=== PATIENT | female | born 1970 | race African-American/Black ===

== ENCOUNTER 2018-03-13 21:44 | Emergency (ER) | payer OTHER ==
[2018-03-13 22:16] VITALS: BP 148/94
== END 2018-03-14 00:05 | disposition left against medical advice (07) ==
LOC: ER 21:44
DX: Z53.21 Procedure and treatment not carried out due to patient leaving prior to being seen by health care provider (principal)

== ENCOUNTER 2018-03-15 13:00 | Emergency (ER) | payer BC, OTHER ==
[2018-03-15 13:29] VITALS: BP 154/95
--- NOTE | 2018-03-15 14:15 | ER Document Report ---
ED Skin Rash/Insect Bite/Abscs - General Chief Complaint: Rash Stated Complaint: POSSIBLE RASH Time Seen by Provider: 03/15/18 13:51 Mode of Arrival: Ambulatory Information source: Patient Notes: 47-year-old female presented ED for complaint of painful rash to her chest she states she went to her primary care doctor and they told her she had shingles but she was afraid that she had West Nile virus. She states she had a little bit of symptoms of a viral infection several days before and then developed a rash. She is alert and oriented respirations regular and in full sentences TRAVEL OUTSIDE OF THE [place] IN LAST 30 DAYS: No - HPI Patient complains to provider of: Skin rash/lesion - Right upper chest Onset: Other - 4 days Onset/Duration: Gradual Quality of pain: Achy Severity: Moderate Pain Level: 2 Skin Character: Vesicular Quality of rash: Itchy, Painful Identify cause: Yes - Patient was diagnosed with shingles at her primary care doctor the patient wanted a second opinion Exacerbated by: Denies Relieved by: Denies Similar symptoms previously: Yes Recently seen / treated by doctor: Yes - Related Data Allergies/Adverse Reactions: No Known Allergies Allergy (Verified 03/13/18 22:08) Past Medical History - Social History Smoking Status: Former Smoker Cigarette use (# per day): No Chew tobacco use (# tins/day): No Smoking Education Provided: No Frequency of alcohol use: Occasional Drug Abuse: None Occupation: Substance abuse counselor Lives with: Family Family History: Reviewed & Not Pertinent Patient has suicidal ideation: No Patient has homicidal ideation: No - Past Medical History Cardiac Medical History: Reports: Hx Hypercholesterolemia, Hx Hypertension Pulmonary Medical History: Reports: None EENT Medical History: Reports: None Neurological Medical History: Reports: None Endocrine Medical History: Reports: None Renal/ Medical History: Reports: Other - Fibroid uterus Malignancy Medical History: Reports: None GI Medical History: Reports: None Musculoskeletal Medical History: Reports None Skin Medical History: Reports None Psychiatric Medical History: Reports: Hx Anxiety Traumatic Medical History: Reports: None Infectious Medical History: Reports: None Past Surgical History: Reports: Hx Section - x1, Hx Hysterectomy - Immunizations Immunizations up to date: Yes Hx Diphtheria, Pertussis, Tetanus Vaccination: Yes Review of Systems - Review of Systems Constitutional: No symptoms reported EENT: No symptoms reported Cardiovascular: No symptoms reported Respiratory: No symptoms reported Gastrointestinal: No symptoms reported Genitourinary: No symptoms reported Female Genitourinary: No symptoms reported Musculoskeletal: No symptoms reported Skin: Lesions - Vesicular rash to the right upper chest does not cross center line Hematologic/Lymphatic: No symptoms reported Neurological/Psychological: No symptoms reported Physical Exam - Vital signs Vitals: Temp Pulse Resp BP Pulse Ox 99 F 88 20 154/95 H 100 03/15/18 13:28 03/15/18 13:28 03/15/18 13:28 03/15/18 13:28 03/15/18 13:28 Interpretation: Normal - General General appearance: Appears well, Alert - HEENT Head: Normocephalic, Atraumatic Eyes: Normal Pupils: PERRL - Respiratory Respiratory status: No respiratory distress Chest status: Nontender Breath sounds: Normal Chest palpation: Normal - Cardiovascular Rhythm: Regular Heart sounds: Normal auscultation Murmur: No - Abdominal Inspection: Normal Distension: No distension Bowel sounds: Normal Tenderness: Nontender Organomegaly: No organomegaly - Back Back: Normal, Nontender - Extremities General upper extremity: Normal inspection, Nontender, Normal color, Normal ROM , Normal temperature General lower extremity: Normal inspection, Nontender, Normal color, Normal ROM , Normal temperature, Normal weight bearing. No: Rafia's sign - Neurological Neuro grossly intact: Yes Cognition: Normal Orientation: AAOx4 [place] Coma Scale Eye Opening: Spontaneous [place] Coma Scale Verbal: Oriented [place] Coma Scale Motor: Obeys Commands [place] Coma Scale Total: 15 Speech: Normal Motor strength normal: LUE, RUE, LLE, RLE Sensory: Normal - Psychological Associated symptoms: Normal affect, Normal mood - Skin Skin Temperature: Warm Skin Moisture: Dry Skin Color: Normal Character of irregularity: Vesicular - Had a form vesicular rash right upper chest Irregularity with: Tenderness Course - Re-evaluation Re-evalutation: 03/15/18 17:00 Patient is already been started on Valtrex. Patient states she was having hard time swallowing the pills due to the size. Informed patient she should question but she needs to take the medication to decrease the pain and discomfort at the rash. Patient was given instructions to keep the rash covered when at home with her mother. Patient was discharged home to follow-up with her primary doctor. - Vital Signs Vital signs: Temp Pulse Resp BP Pulse Ox 99 F 88 20 154/95 H 100 03/15/18 13:28 03/15/18 13:28 03/15/18 13:28 03/15/18 13:28 03/15/18 13:28 Discharge - Discharge Clinical Impression: Shingles rash Qualifiers: Herpes zoster complications: without complications Qualified Code(s): B02.9 - Zoster without complications Disposition: HOME, SELF-CARE Additional Instructions: Shingles You have shingles. Shingles is caused by the chicken pox virus, The virus has been surviving dormant in a nerve cell since you had chicken pox years ago. The virus has spread down a nerve root to reach the skin. Typically, an band-like area of pain and skin sensitivity develops, then small blisters erupt in the area. Shingles lasts two or three weeks, but sometimes leaves persistent pain. You are contagious -- you can give children chicken pox. But you can't give anyone shingles. Antiviral medicines (such as acyclovir or famciclovir) can help, but the rash usually worsens for about a week. Pain medication is often given if the area hurts. Antihistamines such as Benadryl may be necessary for itching if it does not respond to soda baths and calamine lotion. Sometimes cortisone medicine or nerve-block shots are necessary if pain is severe. If the area remains severely painful as the sores heal, or if you suspect an infection developing in the sores, see your doctor. Please complete the Valtrex your primary care doctor gave you. As long as the rash is covered it is not contagious. Contact with the virus rash can spread the rash. If you touch the rash and touch someone else you can spread the virus. Good handwashing is very important with you living with your mother. If you work please be careful wash your hands well and do not touch the area while at work. Ibuprofen Ibuprofen is an excellent, safe drug for pain control. In addition, it has potent antiinflammatory effects which are beneficial, especially in the treatment of injuries, arthritis, or tendonitis. It's best to take ibuprofen with food. Persons with ulcer disease or allergy to aspirin should notify their physician of this before taking ibuprofen. Take the medication exactly as prescribed. Don't take additional doses unless instructed to do so by your doctor. If you develop wheezing, shortness of breath, hives, faintness, stomach pain, vomiting, or dark black stools, return for re-evaluation at once. FOLLOW-UP CARE: If you have been referred to a physician for follow-up care, call the physician s office for an appointment as you were instructed or within the next two days. If you experience worsening or a significant change in your symptoms, notify the physician immediately or return to the Emergency Department at any time for re-evaluation. Forms: Elevated Blood Pressure, Return to Work Referrals: KASSANDRA LOOB MD [Primary Care Provider] - Follow up as needed
== END 2018-03-15 14:20 | disposition home or self-care (01) ==
LOC: ER 13:00
DX: B02.9 Zoster without complications (principal); E78.00 Pure hypercholesterolemia, unspecified; I10 Essential (primary) hypertension; Z87.891 Personal history of nicotine dependence; Z90.710 Acquired absence of both cervix and uterus
CPT/HCPCS: 99282

== ENCOUNTER 2018-07-25 12:52 | Emergency (ER) | payer BC ==
[2018-07-25] MEDS ORDERED: ASPIRIN 81 MG TABLET, CHEWABLE PO ONE (13:33)
[2018-07-25] MEDS ORDERED: MORPHINE SULFATE 10 MG/ML INJ IV ONE (13:35)
--- NOTE | 2018-07-25 13:37 | ER Document Report ---
ED Medical Screen (RME) - General Chief Complaint: Chest Pain Stated Complaint: ABDOMINAL PAIN Time Seen by Provider: 07/25/18 13:26 Primary Care Provider: KASSANDRA LOBO MD [Primary Care Provider] - Follow up as needed Mode of Arrival: Ambulatory Information source: Patient Notes: 48-year-old female presents the emergency department with complaints of chest pain and abdominal pain. Patient states her chest pain started 4 days ago. Is been intermittent in nature. Patient states her last episode was this morning. She describes it as a sharp and stabbing sensation in the left chest. No radiation. No alleviating or exacerbating factors. She did not take any medication for the pain. She states that the pain resolved on its own. She is also having some lightheadedness. She states that she feels like she is going to pass out. Patient also notes 1 week history of lower abdominal pain. She describes it as a dull aching sensation. No radiation. No alleviating or exacerbating factors. She denies any nausea, vomiting, diarrhea, constipation, dysuria, hematuria, increased urgency, increased frequency. I have greeted and performed a rapid initial assessment of this patient. A comprehensive ED assessment and evaluation of the patient, analysis of test results and completion of the medical decision making process will be conducted by additional ED providers. PHYSICAL EXAMINATION: GENERAL: Well-appearing, well-nourished and in no acute distress. HEAD: Atraumatic, normocephalic. EYES: Pupils equal round extraocular movements intact, conjunctiva are normal. ENT: Nares patent NECK: Normal range of motion LUNGS: No respiratory distress Musculoskeletal: Normal range of motion NEUROLOGICAL: Normal speech, normal gait. TRAVEL OUTSIDE OF THE [place] IN LAST 30 DAYS: No - Related Data Allergies/Adverse Reactions: No Known Allergies Allergy (Verified 03/13/18 22:08) Past Medical History - Social History Chew tobacco use (# tins/day): No Frequency of alcohol use: Social Drug Abuse: None - Past Medical History Cardiac Medical History: Reports: Hx Hypercholesterolemia, Hx Hypertension Renal/ Medical History: Denies: Hx Peritoneal Dialysis Psychiatric Medical History: Reports: Hx Anxiety Past Surgical History: Reports: Hx Section - x1, Hx Hysterectomy - Immunizations Immunizations up to date: Yes Hx Diphtheria, Pertussis, Tetanus Vaccination: Yes Physical Exam - Vital signs Vitals: Temp Pulse Resp BP Pulse Ox 97.9 F 102 H 16 147/83 H 100 07/25/18 12:56 07/25/18 12:56 07/25/18 12:56 07/25/18 12:56 07/25/18 12:56 Course - Vital Signs Vital signs: Temp Pulse Resp BP Pulse Ox 97.9 F 102 H 16 147/83 H 100 07/25/18 12:56 07/25/18 12:56 07/25/18 12:56 07/25/18 12:56 07/25/18 12:56 Doctor's Discharge - Discharge Referrals: KASSANDRA LOBO MD [Primary Care Provider] - Follow up as needed
[2018-07-25 14:30] LABS: ABSOLUTE EOSINOPHILS # (AUTO) 0.1 10^3/uL (0.0-0.6); ABSOLUTE LYMPHOCYTES (AUTO) 2.2 10^3/uL (0.5-4.7); ABSOLUTE MONOCYTES (AUTO) 0.6 10^3/uL (0.1-1.4); ABSOLUTE NEUT (AUTO) 3.5 10^3/uL (1.7-8.2); BASOPHILS % (AUTO) 0.7 % (0-2); EOSINOPHILS % (AUTO) 1.2 % (0-6); HEMATOCRIT 42.5 % (36.0-47.0); HEMOGLOBIN 14.4 g/dL (12.0-15.5); MEAN CORPUSCULAR HEMOGLOBIN 29.5 pg (27.0-33.4); MEAN CORPUSCULAR HGB CONC 33.8 g/dL (32.0-36.0); MEAN CORPUSCULAR VOLUME 87 fl (80-97); PLATELET COUNT 312 10^3/uL (150-450); RED BLOOD COUNT 4.87 10^6/uL (3.72-5.28); RED CELL DISTRIBUTION WIDTH 13.9 % (11.5-14.0); SEGMENTED NEUTROPHILS % (AUTO) 54.1 % (42-78); TOTAL CELLS COUNTED % (AUTO) 100 %; WHITE BLOOD COUNT 6.4 10^3/uL (4.0-10.5)
[2018-07-25 14:42] LABS: ALANINE AMINOTRANSFERASE 23 U/L (9-52); ALBUMIN 4.9 g/dL (3.5-5.0); ALKALINE PHOSPHATASE 63 U/L (38-126); ANION GAP 12 (5-19); ASPARTATE AMINO TRANSFERASE 23 U/L (14-36); BILIRUBIN,DIRECT 0.2 mg/dL (0.0-0.4); BILIRUBIN,TOTAL 0.7 mg/dL (0.2-1.3); BLOOD UREA NITROGEN 12 mg/dL (7-20); CARBON DIOXIDE 29 mmol/L (22-30); CHLORIDE 99 mmol/L (98-107); GLUCOSE 120 mg/dL (75-110); LIPASE 110.3 U/L (23-300); POTASSIUM 3.8 mmol/L (3.6-5.0); SODIUM 139.7 mmol/L (137-145)
--- NOTE | 2018-07-25 14:51 | RADIOLOGY REPORT (SQ) ---
EXAM DESCRIPTION: CHEST SINGLE VIEW COMPLETED DATE/TIME: 07/25/2018 2:43 pm REASON FOR STUDY: chest pain COMPARISON: None. EXAM PARAMETERS: NUMBER OF VIEWS: One view. TECHNIQUE: Single frontal radiographic view of the chest acquired. RADIATION DOSE: NA LIMITATIONS: None. FINDINGS: LUNGS AND PLEURA: No opacities, masses or pneumothorax. No pleural effusion. MEDIASTINUM AND HILAR STRUCTURES: No masses. Contour normal. HEART AND VASCULAR STRUCTURES: Heart normal in size. Normal vasculature. BONES: No acute findings. HARDWARE: None in the chest. OTHER: No other significant finding. IMPRESSION: 1. NO ACUTE RADIOGRAPHIC FINDING IN THE CHEST. TECHNICAL DOCUMENTATION: JOB ID: [id number] [employer]- All Rights Reserved Reading location - IP/workstation name: [email or web address]
[2018-07-25 14:56] LABS: APPEARANCE,URINE CLEAR; BILIRUBIN,URINE NEGATIVE (NEGATIVE); GLUCOSE, URINE NEGATIVE (NEGATIVE); KETONES,URINE NEGATIVE (NEGATIVE); LEUKOCYTE ESTERASE,URINE NEGATIVE (NEGATIVE); NITRITE,URINE NEGATIVE (NEGATIVE); PROTEIN,URINE NEGATIVE (NEGATIVE); URINE SPECIFIC GRAVITY 1.003; UROBILINOGEN,URINE NEGATIVE mg/dL (<2.0)
--- NOTE | 2018-07-25 14:57 | ER Document Report ---
ED General - General Chief Complaint: Chest Pain Stated Complaint: ABDOMINAL PAIN Time Seen by Provider: 07/25/18 13:26 Primary Care Provider: KASSANDRA LOBO MD [ACTIVE STAFF] - Follow up as needed Mode of Arrival: Ambulatory TRAVEL OUTSIDE OF THE [place] IN LAST 30 DAYS: No - HPI Notes: Patient is a 48-year-old -[place] female with history of hypertension and hyperlipidemia that presents to the emergency department for chief complaint of chest and abdominal pain. Patient reports squeezing chest pain beginning yesterday that comes and goes. She states the pain lasts about half a second and it happened 3 times yesterday and twice today. She denies changes in chest pain with activity or when eating. She denies any aggravating or relieving factors to the chest pain. She is not currently having any chest pain. Patient states her primary care provider had ordered an outpatient stress test a few months ago but she has not scheduled t hat yet. She has no history of getting cardiac stress test in the past. The patient also reports abdominal pain beginning 1 week ago. She describes it as a intermittent crampy sensation that starts on her lower abdomen and radiates up to her upper abdomen. She is not currently having the abdominal pain. She denies associated diarrhea and vomiting. She denies any urinary complaints. Leg swelling patient is also complaining of jaw pain which she describes as "my head is full" beginning 3 days ago. Patient endorses some dizziness and difficulty concentrating. She states she has been around sick individuals at work and recently had a cold that lasted for 2 weeks, although she states she has been healthy for the past 2 weeks. She treated her cold with Zyrtec and Coricidin and has not been on any recent antibiotics. Patient denies shortness of breath, headache, nausea, vomiting, diarrhea, fever. Past Medical History: Hypertension, hyperlipidemia Past Surgical History: Reviewed in chart Social History: Social alcohol consumption 2-3 times per month, denies tobacco and drug use Family History: Reviewed and noncontributory for presenting illness Allergies: Reviewed, see documented allergy list. REVIEW OF SYSTEMS: CONSTITUTIONAL : No fever No chills No diaphoresis No recent illness EENT: No vision changes No congestion No sore throat CARDIOVASCULAR: chest pain No palpitations RESPIRATORY: No shortness of breath No cough No difficulty breathing GASTROINTESTINAL: abdominal pain No nausea No vomiting No diarrhea GENITOURINARY: No dysuria No hematuria No difficulty urinating MUSCULOSKELETAL: jaw pain No back pain No leg pain No arm pain SKIN: No rashes No lesions LYMPHATIC: No swollen, enlarged glands. NEUROLOGICAL: lightheadedness No headache No weakness No paresthesias PSYCHIATRIC: No anxiety No depression PHYSICAL EXAMINATION: Vital signs reviewed, nursing noted reviewed. GENERAL: Well-appearing, obese and in no acute distress. HEAD: Atraumatic, normocephalic. No tenderness to palpation of the TMJ or temporal artery. EYES: Eyes appear normal, extraocular movements intact, sclera anicteric, conjun ctiva are normal. ENT: nares patent, oropharynx clear without exudates. Moist mucous membranes. NECK: Normal range of motion, supple without lymphadenopathy LUNGS: Breath sounds clear to auscultation bilaterally and equal. No wheezes rales or rhonchi. HEART: Tachycardic rate and regular rhythm without murmurs ABDOMEN: No abdominal tenderness , normoactive bowel sounds. No rebound, guarding, or rigidity. No masses appreciated. EXTREMITIES: Nontender, good range of motion, no pitting or edema. NEUROLOGICAL: No focal neurological deficits. Moves all extremities spontaneously Motor and sensory grossly intact on exam. PSYCH: Normal mood, normal affect. SKIN: Warm, Dry, normal turgor, no rashes or lesions noted on exposed skin - Related Data Allergies/Adverse Reactions: No Known Allergies Allergy (Verified 03/13/18 22:08) Past Medical History - General Information source: Patient - Social History Smoking Status: Never Smoker Chew tobacco use (# tins/day): No Frequency of alcohol use: Social Drug Abuse: None Family History: Reviewed & Not Pertinent Patient has suicidal ideation: No Patient has homicidal ideation: No - Past Medical History Cardiac Medical History: Reports: Hx Hypercholesterolemia, Hx Hypertension Renal/ Medical History: Denies: Hx Peritoneal Dialysis Psychiatric Medical History: Reports: Hx Anxiety Past Surgical History: Reports: Hx Section - x1, Hx Hysterectomy - Immunizations Immunizations up to date: Yes Hx Diphtheria, Pertussis, Tetanus Vaccination: Yes Physical Exam - Vital signs Vitals: Temp Pulse Resp BP Pulse Ox 97.9 F 102 H 16 147/83 H 100 07/25/18 12:56 07/25/18 12:56 07/25/18 12:56 07/25/18 12:56 07/25/18 12:56 Course - Re-evaluation Re-evalutation: 07/25/18 15:08 Vitals reviewed. Nursing notes reviewed. Patient is complaining of a nonspecific sensation in her head that she describes as dizzy and lightheaded. She has no focal neurologic deficits or ataxia. She will be given meclizine for symptomatic management. Her EKG shows no acute STEMI. Patient not currently experiencing chest pain. Her heart score is 3. 07/25/18 16:01 Patient reevaluated and did get relief of her dizziness with the meclizine. CT brain showed no acute intracranial pathology. The remainder of her workup is unremarkable. She does not appear dehydrated and has a negative troponin. Patient has not had chest pain since being in the emergency room. Her intermittent pain lasting only a second is atypical for acute coronary syndrome. With a heart score of 3 she is at low risk for major adverse cardiac event in the next month. I did offer a delta troponin which patient has declined. She was encouraged to follow with her primary care doctor in the next few days for reevaluation and outpatient cardiac stress test which she has already had ordered and just needs to schedule. She will return to the emergency room for any new or worsening symptoms. She is in agreement with plan of care and stable at discharge. Laboratory 07/25/18 07/25/18 07/25/18 13:52 13:52 13:52 WBC 6.4 RBC 4.87 Hgb 14.4 Hct 42.5 MCV 87 MCH 29.5 MCHC 33.8 RDW 13.9 Plt Count 312 Seg Neutrophils % 54.1 Lymphocytes % 35.0 Monocytes % 9.0 Eosinophils % 1.2 Basophils % 0.7 Absolute Neutrophils 3.5 Absolute Lymphocytes 2.2 Absolute Monocytes 0.6 Absolute Eosinophils 0.1 Absolute Basophils 0.0 Sodium 139.7 Potassium 3.8 Chloride 99 Carbon Dioxide 29 Anion Gap 12 BUN 12 Creatinine 0.59 Est GFR ( Amer) > 60 Est GFR (Non-Af Amer) > 60 Glucose 120 H Calcium 10.0 Total Bilirubin 0.7 Direct Bilirubin 0.2 Neonat Total Bilirubin Not Reportable Neonat Direct Bilirubin Not Reportable Neonat Indirect Bili Not Reportable AST 23 ALT 23 Alkaline Phosphatase 63 Troponin I < 0.012 Total Protein 9.0 H Albumin 4.9 Lipase 110.3 Urine Color Urine Appearance Urine pH Ur Specific [place] Urine Protein Urine Glucose (UA) Urine Ketones Urine Blood Urine Nitrite Urine Bilirubin Urine Urobilinogen Ur Leukocyte Esterase Urine WBC (Auto) Urine RBC (Auto) Urine Bacteria (Auto) Squamous Epi Cells Auto Urine Mucus (Auto) Urine Ascorbic Acid 07/25/18 13:52 WBC RBC Hgb Hct MCV MCH MCHC RDW Plt Count Seg Neutrophils % Lymphocytes % Monocytes % Eosinophils % Basophils % Absolute Neutrophils Absolute Lymphocytes Absolute Monocytes Absolute Eosinophils Absolute Basophils Sodium Potassium Chloride Carbon Dioxide Anion Gap BUN Creatinine Est GFR ( Amer) Est GFR (Non-Af Amer) Glucose Calcium Total Bilirubin Direct Bilirubin Neonat Total Bilirubin Neonat Direct Bilirubin Neonat Indirect Bili AST ALT Alkaline Phosphatase Troponin I Total Protein Albumin Lipase Urine Color STRAW Urine Appearance CLEAR Urine pH 6.0 Ur Specific [place] 1.003 Urine Protein NEGATIVE Urine Glucose (UA) NEGATIVE Urine Ketones NEGATIVE Urine Blood NEGATIVE Urine Nitrite NEGATIVE Urine Bilirubin NEGATIVE Urine Urobilinogen NEGATIVE Ur Leukocyte Esterase NEGATIVE Urine WBC (Auto) 3 Urine RBC (Auto) 1 Urine Bacteria (Auto) 3+ Squamous Epi Cells Auto 2 Urine Mucus (Auto) RARE Urine Ascorbic Acid NEGATIVE Chest X-Ray 07/25/18 13:33 IMPRESSION: 1. NO ACUTE RADIOGRAPHIC FINDING IN THE CHEST. Head CT 07/25/18 15:02 IMPRESSION: NORMAL BRAIN CT WITHOUT CONTRAST. EVIDENCE OF ACUTE STROKE: NO. - Vital Signs Vital signs: Temp Pulse Resp BP Pulse Ox 97.9 F 102 H 16 147/83 H 97 07/25/18 12:56 07/25/18 12:56 07/25/18 12:56 07/25/18 12:56 07/25/18 14:30 - Laboratory Result Diagrams: 07/25/18 13:52 07/25/18 13:52 Laboratory results interpreted by me: 07/25/18 13:52 Glucose 120 H Total Protein 9.0 H - EKG Interpretation by Me Additional EKG results interpreted by me: 07/25/18 15:07 Interpreted by myself [id number]: Sinus tachycardia, rate 100, normal axis, no ectopy, no STEMI Discharge - Discharge Clinical Impression: Chest pain Qualifiers: Chest pain type: unspecified Qualified Code(s): R07.9 - Chest pain, unspecified Condition: Stable Disposition: HOME, SELF-CARE Instructions: Chest Pain of Unclear Cause ([facility]) Additional Instructions: Please return to the emergency department if you have any worsening, or concern of your symptoms. Please return to the emergency department if you develop chest pain, difficulty breathing, severe abdominal pain, or ongoing vomiting. Please follow-up with your primary care physician in 2-3 days and any other recommended physicians. If prescribed, take all medications as directed. If you have any questions or concerns do not hesitate to return the emergency department for evaluation. Follow-up with your doctor for cardiac stress test this week in the next few days. Prescriptions: Meclizine HCl [Motion Relief] 25 mg PO BID PRN #30 tablet PRN Reason: dizziness Referrals: KASSANDRA LOBO MD [ACTIVE STAFF] - Follow up in 3-5 days
[2018-07-25 15:00] LABS: COLOR,URINE STRAW
[2018-07-25] MEDS ORDERED: MECLIZINE HCL 25 MG TABLET PO ONE (15:02)
--- NOTE | 2018-07-25 15:28 | RADIOLOGY REPORT (SQ) ---
EXAM DESCRIPTION: CT HEAD WITHOUT COMPLETED DATE/TIME: 07/25/2018 3:17 pm REASON FOR STUDY: dizziness COMPARISON: None. TECHNIQUE: Axial images acquired through the brain without intravenous contrast. Images reviewed wi th bone, brain and subdural windows. Images stored on PACS. All CT scanners at this facility use dose modulation, iterative reconstruction, and/or weight based d osing when appropriate to reduce radiation dose to as low as reasonably achievable ([facility]). [facility]: Dose Right [facility]: CareDose [facility]: Dose Right [facility]: Teradose 4D [facility]: Freeppie RADIATION DOSE: CT Rad equipment meets quality standard of care and radiation dose reduction techniq ues were employed. CTDIvol: 53.2 mGy. DLP: 1044 mGy-cm. mGy. LIMITATIONS: None. FINDINGS: VENTRICLES: Normal size and contour. CEREBRUM: No masses. No hemorrhage. No midline shift. No evidence for acute infarction. Normal gra y/white matter differentiation. No areas of low density in the white matter. CEREBELLUM: No masses. No hemorrhage. No alteration of density. No evidence for acute infarction. EXTRAAXIAL SPACES: No fluid collections. No masses. ORBITS AND GLOBE: No intra- or extraconal masses. Normal contour of globe without masses. CALVARIUM: No fracture. PARANASAL SINUSES: No fluid or mucosal thickening. SOFT TISSUES: No mass or hematoma. OTHER: No other significant finding. IMPRESSION: NORMAL BRAIN CT WITHOUT CONTRAST. EVIDENCE OF ACUTE STROKE: NO. COMMENT: Quality ID # [id number]: Final reports with documentation of one or more dose reduction techniques (e.g., Automated exposure control, adjustment of the mA and/or kV according to patient size, use of iterative reconstruction technique) TECHNICAL DOCUMENTATION: JOB ID: [id number] [employer]- All Rights Reserved Reading location - IP/workstation name: [email or web address]
[2018-07-25 16:26] VITALS: BP 151/98
--- NOTE | 2018-07-25 23:20 | EKG REPORT ---
SEVERITY:- OTHERWISE NORMAL ECG - SINUS TACHYCARDIA BORDERLINE LEFT AXIS DEVIATION : Confirmed by: Kirsten Sprague MD 25-Jul-2018 23:20:07
== END 2018-07-25 17:07 | disposition home or self-care (01) ==
LOC: ER 12:52
DX: R07.9 Chest pain, unspecified (principal); R10.9 Unspecified abdominal pain; M79.89 Other specified soft tissue disorders; I10 Essential (primary) hypertension; E78.5 Hyperlipidemia, unspecified
CPT/HCPCS: 36415; 70450; 71045; 80053; 81001; 83690; 84484; 85025; 93005; 93010; 99284